=== PATIENT | male | born 1980 | race Caucasian/White ===

== ENCOUNTER 2016-10-25 02:04 | Emergency (ER) | payer MEDICAID ==
[2016-10-25 04:36] VITALS: BP 114/68
== END 2016-10-25 04:36 | disposition home or self-care (01) ==
LOC: ED 02:04
DX: J45.901 Unspecified asthma with (acute) exacerbation (principal)
CPT/HCPCS: J7512; J7613; J7644; Q0092

== ENCOUNTER 2016-11-06 22:53 | Emergency (ER) | payer MEDICAID ==
[2016-11-07 01:49] VITALS: BP 123/71
== END 2016-11-07 01:49 | disposition home or self-care (01) ==
LOC: ED 22:53
DX: J98.01 Acute bronchospasm (principal)
CPT/HCPCS: J7512; J7613; J7644; Q0092